=== PATIENT | male | born 1940 | race Caucasian/White ===

== ENCOUNTER 2016-07-09 12:45 | Emergency (ER) | payer MEDICARE, OTHER ==
[2016-07-09] MEDS ORDERED: ENOXAPARIN SODIUM 100 MG/ML SYR SUBCUT ONE (13:14)
[2016-07-09 13:33] LABS: BASOPHILS 0.4 % (0.0-2.0); EOSINOPHILS 0.9 % (0.0-6.0); EOSINOPHILS# 0.1 X 10^3uL (0.0-0.4); HEMATOCRIT 47.8 % (42.0-54.0); HEMOGLOBIN 16.3 g/dL (14.0-18.0); LYMPHOCYTES 16.7 % (20.0-40.0); LYMPHOCYTES# 1.3 X 10^3uL (0.8-3.8); MEAN CORPUS. HGB CONCENTRATION 34.2 g/dL (32.0-36.0); MEAN CORPUSCULAR HEMOGLOBIN 31.8 pg (29.0-35.0); MEAN PLATELET VOLUME 7.4 fL (7.4-10.4); MONOCYTES# 0.5 X 10^3uL (0.2-1.0); NEUTROPHILS# 5.9 X 10^3uL (2.6-6.7); PLATELET COUNT 211 X 10^3uL (130-440); RED BLOOD COUNT 5.15 X 10^6uL (4.20-6.10); RED CELL DISTRIBUTION WIDTH 13.3 % (11.5-14.5); WHITE BLOOD COUNT 7.8 X 10^3uL (3.9-10.7)
[2016-07-09 13:39] LABS: BLOOD UREA NITROGEN 17 mg/dL (9-20); CALCIUM 9.2 mg/dL (8.4-10.2); CHLORIDE 107 mmol/L (98-107); CREATININE 1.2 mg/dL (0.7-1.3); EST GLOMERULAR FILTRATION RATE > 60 mL/min; GLUCOSE 119 mg/dL (70-100); POTASSIUM 4.6 mmol/L (3.5-5.1); SODIUM 145 mmol/L (137-145)
[2016-07-09 13:45] LABS: INR 1.1
--- NOTE | 2016-07-09 13:46 | ER NURSING DOCUMENTATION ---
Nurse's Notes [facility] Name:Chris Mitchell Jr Age:75 yrs Sex:Male :1940 Arrival Date:07/09/2016 Time:12:45 Bed1 Private MD: Diagnosis:Arterial Occlusion Presentation: 07/09 12:50 Acuity: LINDSAY 3 lc 12:58 Presenting complaint: Patient states: 1 HOUR AGO C/O SUDDEN ONSET OF LEFT FOREARM lc NUMBNESS AND PALENESS. SENSATION DECREASED. ONLY ACTIVITY WITH ARM TODAY WAS WALKING THE DOG. NO CHEST, PAIN OR SOB OR OTHER SYMPTOMS. NO HX OF BLOOD CLOTS. USED TO TAKE BABY ASA, BUT HAS NOT IN LAST FEW MONTHS. Transition of care: Home. Notified ED Physician of patient's arrival and CC Eder Dey notified. 12:58 Acuity: LINDSAY 2 lc 12:58 Method Of Arrival: Walk In Triage Assessment: 13:05 General: Appears comfortable, Behavior is cooperative. Pain: Denies pain. Neuro: Level lc of Consciousness is awake, alert, Oriented to person, place, time, event, Control Engineer are weak on left Moves all extremities. LEFT HAND WEAKER. Cardiovascular: LEFT HAND PALE, NO PULSES DETECTABLE, DECREASED SENSATION, . Respiratory: Airway is patent Respiratory effort is even, unlabored, Breath sounds are clear. Derm: Skin is pink, warm & dry. GENERALLY. Historical: - Allergies: No known drug Allergies; - Home Meds: 1. TOMAZEPAM 2. tizanidine oral - PMHx: DENIES; - PSHx: SHOULDER SURGERY; KNEE SURGERY; - Tetanus: > 10 years. - Ebola Screening: : Patient negative for fever greater than or equal to 101.5 degrees Fahrenheit, and additional compatible Ebola Virus Disease symptoms. Patient denies exposure to infectious person. Patient denies travel to an Ebola-affected area in the 21 days before illness onset. . - Immunization history: Pneumococcal vaccine is up to date, Flu Vaccine < 1 year. - Social history: Smoking status: Patient states former smoker of tobacco. Screenin:10 Infectious Disease Risk None. Abuse screen: Denies threats or abuse. Denies injuries lc from another. Nutritional screening: No deficits noted. Assessment: 13:09 See Triage Assessment done by same RN. lc 13:09 Cardiovascular: Rhythm is regular. lc 13:25 Reassessment: LEFT HAND SL PINKER NOW, STILL NO PALPABLE PULSES, LEFT ARM RAISED TO LEVEL OF THE HEART.. Vital Signs: 12:52 BP 148 / 85; Pulse 69; Resp 16; Temp 97.7(O); Pulse Ox 90% ; Weight 104.33 kg; Height 6 jt ft. (182.88 cm); Pain 1/10; 13:25 Pulse 76; Resp 16; Pulse Ox 91% on R/A; Pain 0/10; lc 12:52 Body Mass Index 31.19 (104.33 kg, 182.88 cm) jt ED Course: 12:46 Patient arrived in ED. jt 12:50 Willem Gaines MD is Attending Physician. 12:50 Ladonna Kiran RN is Primary Nurse. lc 12:51 Triage completed. lc 13:10 Valuables Remains with patient Patient has correct armband on for positive lc identification. Placed in gown. Bed in low position. Call light in reach. tmr teacher on. Elevated left arm. 13:19 Labs drawn. (by ED staff). Sent per order to lab. Inserted peripheral IV: 20 gauge in lc right forearm antecubital area and blood collected. 13:43 Other attached lc Administered Medications: 13:05 Drug: Lovenox 100 mg; Route: Sub-Q; Site: right lower abdomen; rs 13:24 Follow up: Response: No adverse reaction rs 13:24 Follow up: Response: No adverse reaction Outcome: 13:21 ER care complete, transfer ordered by . rosa maria 13:33 Transferred: Patient will be transferred to: [facility]. [facility] Acceptance Time: July 09, 2016 at 13:18 Patient's face sheet was faxed to accepting facility. Face Sheet included patient's name, address, age, gender, contact information and insurance information. Patient will be transported by: [facility] ground. Report called to: LOU RAE Nurse and Physician Charting and Notes were sent to Accepting Facility. All tests and/or procedures with results, if applicable, were sent to accepting facility. 13:35 Condition: stable lc 13:35 Report given to LOU RAE 13:35 Instructed on need for transfer Demonstrated understanding of instructions, NEIGHBOR CALLED TO HELP TAKE CARE OF HIS HOUSE AND DOG 13:45 Patient left the ED. 17:00 Report given to LABS FAXED TO [facility] Signatures: Cheli Lopze RN RN rs Coleman, Linda, RN RN Willem Shelton MD MD jm Tennant, Joanne jt
--- NOTE | 2016-07-09 13:46 | ER PHYSICIAN DOCUMENTATION ---
Physician Documentation [facility] Name:Chris Mitchell Jr Age:75 yrs Sex:Male :1940 Arrival Date:07/09/2016 Time:12:45 Bed1 Private MD: Willem Liu Disposition: 07/09/16 13:21 Transfer ordered to [facility]. Diagnosis is Arterial Occlusion. - Reason for transfer: Specialty. - Accepting physician is Dr. Rudd. - Condition is Serious. - Problem is new. - Symptoms are unchanged. COBRA Form completed? Yes Transfer - Mode of Transportation Ambulance HPI: 07/09 13:08 This 75 yrs old Male presents to ER via Walk In with complaints of jm CIRCULATION PROBLEM. 13:08 The patient or guardian reports pain, pallor and numbness. The complaints affect the jm left hand and left arm. Context: resulted from an unknown cause. Onset: The symptom(s)/episode began/occurred just prior to arrival. Modifying factors: the symptoms are aggravated by nothing. Associated signs and symptoms: Pertinent positives: cyanosis distally, numbness distally, tingling distally. Severity of symptoms: in the emergency department the symptoms are unchanged. The patient has not experienced similar symptoms in the past. The patient has not recently seen a physician. Pt here from [place]. He was walking his dogs when he noted some pain and numbness in his L forearm and down to his hand. Pt denies any PMH. . Historical: - Allergies: No known drug Allergies; - Home Meds: 1. TOMAZEPAM 2. tizanidine oral - PMHx: DENIES; - PSHx: SHOULDER SURGERY; KNEE SURGERY; - Tetanus: > 10 years. - Ebola Screening: : Patient negative for fever greater than or equal to 101.5 degrees Fahrenheit, and additional compatible Ebola Virus Disease symptoms. Patient denies exposure to infectious person. Patient denies travel to an Ebola-affected area in the 21 days before illness onset. . - Immunization history: Pneumococcal vaccine is up to date, Flu Vaccine < 1 year. - Social history: Smoking status: Patient states former smoker of tobacco. ROS: 13:11 Constitutional: Negative for fever. jm 13:11 Eyes: Negative for blurry vision. 13:11 Neck: Negative for tenderness, bony tenderness. 13:11 Cardiovascular: Negative for chest pain, edema, palpitations. 13:11 Respiratory: Negative for cough, shortness of breath. 13:11 MS/extremity: Positive for paresthesias. 13:11 Skin: Positive for pallor. 13:11 Neuro: Positive for numbness, tingling. 13:11 All other systems are negative. Exam: 13:13 Constitutional: The patient appears alert, awake. jm 13:13 Eyes: Periorbital structures: appear normal, Conjunctiva: normal. 13:13 ENT: Posterior pharynx: is normal, Voice: is normal. 13:13 Cardiovascular: Rate: normal, Rhythm: regular. 13:13 Respiratory: Respirations: normal, Breath sounds: are normal. 13:13 Abdomen/GI: Bowel sounds: normal, Palpation: abdomen is soft and non-tender. 13:13 Back: pain, is absent, CVA tenderness, is absent. 13:13 Musculoskeletal/extremity: Pulses: noted to be 2+ in the left brachial artery, are absent in the left radial artery, Perfusion: the extremity is cool, mottled, dusky, noted to have sluggish capillary refill, L arm. 13:13 Skin: Appearance: Color: cyanotic, dusky, pale, L forearm and hand, no rash present. 13:13 Neuro: Sensation: numbness, that is moderate, of the left hand and left arm, tingling, that is severe, of the left hand and left arm. 13:13 Psych: Behavior/mood is pleasant, cooperative. 13:23 Musculoskeletal/extremity: Severe pain noted. Tingling of extremity. numbness, jm decreased sensation, no radial or ulnar pulse Vital Signs: 12:52 BP 148 / 85; Pulse 69; Resp 16; Temp 97.7(O); Pulse Ox 90% ; Weight 104.33 kg; Height 6 jt ft. (182.88 cm); Pain 1/10; 13:25 Pulse 76; Resp 16; Pulse Ox 91% on R/A; Pain 0/10; lc 12:52 Body Mass Index 31.19 (104.33 kg, 182.88 cm) jt MDM: 12:50 Patient medically screened. jm 13:18 Differential diagnosis: Arterial clot. Data reviewed: vital signs, nurses notes, and as jm a result, I will *Transfer Patient. Counseling: I had a detailed discussion with the patient and/or guardian regarding: the historical points, exam findings, and any diagnostic results supporting the discharge/admit diagnosis, lab results. Physician consultation: Dr. Rudd was called at 13:00, was contacted at 13:00. ED course: Pt w obvious arterial clot w/o any radial or ulnar pulse by Doppler. Pt will need urgent transfer to [facility]. . 13:43 Other attached lc 07/09 13:44 Order name: BASIC METABOLIC PANEL; Complete Time: 15:01 EDCT 07/09 13:46 Order name: CBC AUTO DIF, MDIF/RMOR IF IND; Complete Time: 15:01 EDCT 07/09 13:50 Order name: PROTIME/INR; Complete Time: 15:01 EDCT 07/09 13:20 Order name: Iv Saline Lock; Complete Time: 13:23 rs Dispensed Medications: 13:05 Drug: Lovenox 100 mg; Route: Sub-Q; Site: right lower abdomen; rs 13:24 Follow up: Response: No adverse reaction rs 13:24 Follow up: Response: No adverse reaction Signatures: Cheli Lopez RN RN rs Ladonna Kiran RN RN Willem Shelton MD MD jm
== END 2016-07-09 13:46 | disposition short-term general hospital (02) ==
LOC: ER 12:45
DX: I74.2 Embolism and thrombosis of arteries of the upper extremities (principal); R20.2 Paresthesia of skin; R23.0 Cyanosis; R23.1 Pallor; R09.89 Other specified symptoms and signs involving the circulatory and respiratory systems; Z87.891 Personal history of nicotine dependence; Z74.3 Need for continuous supervision
CPT/HCPCS: 80048; 85025; 85610; 96372; 99285; J1650